=== PATIENT | male | born 1985 | race American Indian/Alaskan Native ===

== ENCOUNTER 2018-04-09 04:59 | Emergency (ER) | payer SELFPAY ==
[2018-04-09 05:25] VITALS: BP 130/85
[2018-04-09] MEDS ORDERED: NORCO 5/325 PO ONE (05:55)
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
--- NOTE | 2018-04-09 06:52 | XRay Report ---
FINAL REPORT PROCEDURE: XR FACIAL BONES 3+V TECHNIQUE: Facial bone radiographs, minimum of 3 views, including PA, Peterson, and lateral projection s. HISTORY: Right jaw pain COMPARISON: No prior studies are available for comparison. FINDINGS: Bone mineralization: Normal. Fractures: None. Paranasal sinuses: Clear. IMPRESSION: Normal Examination.
== END 2018-04-09 07:40 | disposition home or self-care (01) ==
LOC: ED 04:59
DX: S02.651A Fracture of angle of right mandible, initial encounter for closed fracture (principal); J45.909 Unspecified asthma, uncomplicated; Y04.0XXA Assault by unarmed brawl or fight, initial encounter; Y93.89 Activity, other specified; Y92.149 Unspecified place in prison as the place of occurrence of the external cause; Y99.8 Other external cause status
CPT/HCPCS: 70150